=== PATIENT | male | born 1995 | race Two or more races ===

== ENCOUNTER 2023-12-28 02:19 | Emergency (ER) | payer OTHER ==
[~2023-12-28] VITALS: Ht 180.3 cm; Wt 72.6 kg
[2023-12-28] MEDS ORDERED: METOCLOPRAMIDE HCL 5 MG/ML VIAL IM STA (03:20)
[2023-12-28] MEDS ORDERED: RINGERS SOLUTION,LACTATED 1,000 ML IV STA (03:21)
[2023-12-28] MEDS ORDERED: HYOSCYAMINE SULFATE 0.125 MG TAB.SUBL SL STA (03:21)
[2023-12-28] MEDS ORDERED: FAMOtidine 10 MG/ML (4ML VIAL) IV PUSH STA (03:22)
[2023-12-28] MEDS ORDERED: ONDANSETRON HCL 2 MG/ML VIAL IV STA (03:22)
[2023-12-28 03:57] LABS: HEMATOCRIT 41.7 % (39.0-48.0); MEAN CELL VOLUME 91.1 fL (80.0-100.00); MEAN CORPUSCULAR HEMOGLOBIN 30.6 pg (27.00-32.0); MEAN CORPUSCULAR HGB CONC 33.6 g/dl (32.0-36.0); PLATELET COUNT 194 K/uL (150-450); RED BLOOD COUNT 4.57 M/uL (4.00-6.00); RED CELL DISTRIBUTION WIDTH 13.7 % (11.5-14.5)
[2023-12-28 04:04] LABS: CALCIUM 10.2 mg/dL (8.5-10.1); CREATININE SERUM 1.24 mg/dL (0.70-1.30); GFR 69.93; POTASSIUM 3.84 mEq/L (3.5-5.1)
[2023-12-28] MEDS ORDERED: PROMETHAZINE HCL 50 MG/ML AMPUL IM STA (04:39)
== END 2023-12-28 07:53 | disposition home or self-care (01) ==
LOC: ER 02:20
DX: K29.70 Gastritis, unspecified, without bleeding (principal); R11.10 Vomiting, unspecified; R14.3 Flatulence; R14.1 Gas pain; R14.2 Eructation
CPT/HCPCS: 36415; 74176; 96365; 96372; 99284; J2405; J2550; J2765; J3490